=== PATIENT | male | born 1980 | race Caucasian/White ===

== ENCOUNTER 2018-01-27 08:11 | Emergency (ER) | payer OTHER ==
[~2018-01-27] VITALS: Ht 182.9 cm; Wt 93.0 kg
--- OUTSIDE RECORDS SUMMARY | ~2018-01-27 | XMS | Clinical Summary ---
Demographics + + + | Address | [address] | | | [place] [address] | + + + | Home Phone | | + + + | Preferred Language | Unknown | + + + | Marital Status | Unknown | + + + | Christianity Affiliation | Unknown | + + + | Race | Unknown | + + + | Ethnic Group | Unknown | + + + Author + + + | Author | NON REVENUE LOCATIONS | + + + | Organization | NON REVENUE LOCATIONS | + + + | Address | Unknown | + + + | Phone | Unavailable | + + + Care Team Providers + +------+ + | Care Low Pressure Kettle Operator Name | Role | Phone | + +------+ + PP | Unavailable | + +------+ + Source Comments MÓNICA is fully live on both [facility] Ambulatory and [facility] InPatient.[facility] Allergies Not on File Current Medications Not on file Active Problems Not on file Social History + +-------+ +--------+------+ | Tobacco Use | Types | Packs/Day | Years | Date | | | | | Used | | + +-------+ +--------+------+ | Never Assessed | | | | | + +-------+ +--------+------+ + + + | Sex Assigned at | Date Recorded | | | | + + + | Not on file | | + + + Plan of Treatment + + + + + | Health Maintenance | Due Date | Last Done | Comments | + + + + + | INFLUENZA VACCINE | | | | | (FLU SHOT) | 8 | | | + + + + + Results Not on filefrom Last 3 Months"
--- OUTSIDE RECORDS SUMMARY | ~2018-01-27 | XMS | Clinical Summary ---
Demographics + + + | Address | [address] | | | [place] [address] | + + + | Home Phone | | + + + | Preferred Language | Unknown | + + + | Marital Status | Unknown | + + + | Church Affiliation | Unknown | + + + [...] Team Providers + +------+ + | Care Medical Records Director Name | Role | Phone | + +------+ + PP | Unavailable | + +------+ + Source Comments MÓNICA is fully live on both [facility] Ambulatory and [facility] InPatient.[facility] Allergies Not on File Current Medications Not [...]
--- OUTSIDE RECORDS SUMMARY | ~2018-01-27 | XMS | Clinical Summary ---
Demographics + + + | Address | [address] [place] [address] | | | [place] [address] | + + + | Home Phone | | + + + | Preferred Language | Unknown | + + + | Marital Status | Single | + + + | Islam Affiliation | Unknown | + + + | Race | Unknown | + + + | Ethnic Group | Unknown | + + + Author + + + | Author | [facility] | + + + | Organization | [facility] | + + + | Address | Unknown | + + + | Phone | Unavailable | + + + Support +--------+ +---------+ + | Name | Relationship | Address | Phone | +--------+ +---------+ + | No,One | ECON | Unknown | | +--------+ +---------+ + Care Team Providers + +------+ + | Care Auto Bumper Straightener Name | Role | Phone | + +------+ + | Lane Contreras MD | PP | | + +------+ + Allergies + + + + + + | Active Allergy | Reactions | Severity | Noted | Comments | | | | | Date | | + + + + + + | Penicillins | Anaphylaxis | High | 02/05/20 | | | | | | 14 | | + + + + + + Current Medications + + +--------+---------+------+------+-------+ | Prescription | Sig. | Disp. | Refills | Star | End | Statu | | | | | | t | Date | s | | | | | | Date | | | + + +--------+---------+------+------+-------+ | | Take 12.5 mg by | | | | | Activ | | hydrochlorothiazide | mouth daily. | | | | | e | | (MICROZIDE) 12.5 MG | | | | | | | | capsule | | | | | | | + + +--------+---------+------+------+-------+ | lithium carbonate | Take 900 mg by mouth | | | | | Activ | | 300 MG capsule | nightly. | | | | | e | + + +--------+---------+------+------+-------+ | nitroGLYCERIN | Place 0.4 mg under | | | | | Activ | | (NITROSTAT) 0.4 MG | the tongue every 5 | | | | | e | | SL tablet | (five) minutes as | | | | | | | | needed for Chest | | | | | | | | pain. | | | | | | + + +--------+---------+------+------+-------+ | clonazePAM | Take 1 mg by mouth 2 | | | | | Activ | | (KLONOPIN) 1 MG | (two) times daily | | | | | e | | tablet | as needed for | | | | | | | | Anxiety. | | | | | | + + +--------+---------+------+------+-------+ | phenytoin | Take 200 mg by mouth | | | | | Activ | | (DILANTIN) 100 MG ER | 2 (two) times | | | | | e | | capsule | daily. | | | | | | + + +--------+---------+------+------+-------+ | tamsulosin | Take 0.4 mg by mouth | | | | | Activ | | (FLOMAX) 0.4 MG | After dinner. | | | | | e | | capsule | Administer 30 | | | | | | | | minutes after the | | | | | | | | same meal each day. | | | | | | | | Capsules should be | | | | | | | | swallowed whole; do | | | | | | | | not crush, chew, or | | | | | | | | open | | | | | | + + +--------+---------+------+------+-------+ | atenolol | Take 25 mg by mouth | | | | | Activ | | (TENORMIN) 25 MG | daily. | | | | | e | | tablet | | | | | | | + + +--------+---------+------+------+-------+ | sertraline | Take 100 mg by mouth | | | | | Activ | | (ZOLOFT) 100 MG | daily. | | | | | e | | tablet | | | | | | | + + +--------+---------+------+------+-------+ | Paliperidone | Inject into the | | | | | Activ | | Palmitate 234 | muscle. Every 4 | | | | | e | | MG/1.5ML SUSP | weeks (to be done by | | | | | | | | staff) | | | | | | + + +--------+---------+------+------+-------+ | Albuterol Sulfate | Inhale into the | | | | | Activ | | (VENTOLIN HFA IN) | lungs. | | | | | e | + + +--------+---------+------+------+-------+ | omeprazole | Take 20 mg by mouth | | | | | Activ | | (PRILOSEC) 20 MG | every morning before | | | | | e | | capsule | breakfast. | | | | | | + + +--------+---------+------+------+-------+ | aspirin 81 MG | Take 81 mg by mouth | | | | | Activ | | tablet | daily. | | | | | e | + + +--------+---------+------+------+-------+ | mirtazapine | Take 30 mg by mouth | | | | | Activ | | (REMERON) 30 MG | nightly. | | | | | e | | tablet | | | | | | | + + +--------+---------+------+------+-------+ | phenytoin | Take 100 mg by mouth | | | | | Activ | | (DILANTIN) 100 | 2 (two) times | | | | | e | | MG/4ML suspension | daily. | | | | | | + + +--------+---------+------+------+-------+ | lamoTROgine | Take 25 mg by mouth | | | | | Activ | | (LAMICTAL) 25 MG | daily. | | | | | e | | tablet | | | | | | | + + +--------+---------+------+------+-------+ | topiramate | Take 25 mg bid X 1 | 120 | 3 | 11/1 | | Activ | | (TOPAMAX) 50 MG | wk then 50 mg bid X | tablet | | 02/21 | | e | | tabletIndications: | 1 wk then 75 mg bid | | | 14 | | | | Epilepsy (HCC) | X 1 wk then 100 mg | | | | | | | | bid | | | | | | + + +--------+---------+------+------+-------+ Active Problems + + + | Problem | Noted Date | + + + | Chest pain | 02/04/2014 | + + + Family History + + +------+ + | Medical History | Relation | Name | Comments | + + +------+ + | Heart disease | Maternal | | | | | Grandfath | | | | | er | | | + + +------+ + | Heart disease | Maternal | | | | | Grandmoth | | | | | er | | | + + +------+ + | Heart Disease | | | Per patient most of mothers family | + + +------+ + + +------+--------+ + | Relation | Name | Status | Comments | + +------+--------+ + | Maternal Grandfather | | | | + +------+--------+ + | Maternal Grandmother | | | | + +------+--------+ + Social History + +-------+ +--------+------+ | Tobacco Use | Types | Packs/Day | Years | Date | | | | | Used | | + +-------+ +--------+------+ | Former Smoker | | | | | + +-------+ +--------+------+ + + +---------+ + | Alcohol Use | Drinks/We | oz/Week | Comments | | | ek | | | + + +---------+ + | No | | | | + + +---------+ + + + + | Sex Assigned at | Date Recorded | | | | + + + | Not on file | | + + + Last Filed Vital Signs + + + + | Vital Sign | Reading | Time Taken | + + + + | Blood Pressure | 115/80 | 04/22/2014 11:06 AM PST | + + + + | Pulse | 66 | 04/22/2014 11:06 AM PST | + + + + | Temperature | - | - | + + + + | Respiratory Rate | 20 | 02/04/2014 1:40 PM PDT | + + + + | Oxygen Saturation | 100% | 02/04/2014 1:40 PM PDT | + + + + | Inhaled Oxygen | - | - | | Concentration | | | + + + + | Weight | 103.4 kg (228 lb) | 04/22/2014 11:06 AM PST | + + + + | Height | 182.9 cm (6') | 04/22/2014 11:06 AM PST | + + + + | Body Mass Index | 30.92 | 04/22/2014 11:06 AM PST | + + + + Plan of Treatment + + + + + | Health Maintenance | Due Date | Last Done | Comments | + + + + + | Vaccine: | | | | | Dtap/Tdap/Td (1 - | 9 | | | | Tdap) | | | | + + + + + | Vaccine: Influenza | | | | | (#1) | 8 | | | + + + + + Results Not on filefrom Last 3 Months Insurance + +--------+ +------+-------+---------+ | Payer | Benefi | Subscriber | Type | Phone | Address | | | t Plan | ID | | | | | | / | | | | | | | Group | | | | | + +--------+ +------+-------+---------+ | [employer] | [employer] | [id number] | | | | | | RECTIO | | | | | | | NAL | | | | | | | HEALTH | | | | | | | | | | | | | | PARTNE | | | | | | | RS | | | | | + +--------+ +------+-------+---------+ + +--------+ +--------+ + + | Guarantor Name | Accoun | Relation to | Date | Phone | Billing Address | | | t Type | Patient | of | | | | | | | | | | + +--------+ +--------+ + + | [place], [place] | Correc | Other | [birth year] | Home: | [address] | | | tional | | [phone] | [phone] | [place] | | | | | | [phone] | | | Facili | | | | | | | ty | | | | | + +--------+ +--------+ + +"
--- OUTSIDE RECORDS SUMMARY | ~2018-01-27 | XMS | Clinical Summary ---
Demographics + + + | Address | [address] [place] [address] | | | [place] [address] | + + + | Home Phone | | + + + | Preferred Language | Unknown | + + + | Marital Status | Single | + + + | Cheondoism Affiliation | Unknown | + + + | Race | Unknown | + + + | Ethnic Group | Unknown | + + + Author + + + | Author | [facility] | + + + | Organization | [facility] | + + + | Address | Unknown | + + + | Phone | Unavailable | + + + Support +--------+ +---------+ + | Name | Relationship | Address | Phone | +--------+ +---------+ + | No,One | ECON | Unknown | | +--------+ +---------+ + Care Team Providers + +------+ + | Care Coil Former Name | Role | Phone | + [...] +------+-------+---------+ | [employer] | [employer] | [id number] | | | | | | RECTIO [...] | + +--------+ +--------+ + + | [place], [place] | Correc | Other | [birth year] | Home: | [address] | | | tional | | 1900 | [phone] | [place] | | | | | | [phone] | | | Facili | | | | | | | ty | | | | | + +--------+ +--------+ + +"
[~2018-01-27 08:11] MED LIST: ASPIRIN EC81 MG PO; ATENOLOL25 MG PO; BUSPIRONE HCL15 MG PO; CLONAZEPAM1 MG PO; FLOMAX0.4 MG PO; HYDROCHLOROTH12.5 MG PO; HYDROXYZINE HCL50 MG PO; INVEGA SUS234 MG/1.5 IM; KLONOPIN1 MG PO; MIRTAZAPINE30 MG PO; NITROSTAT0.4 MG SL; OMEPRAZOLE20 MG PO; SERTRALINE HCL100 MG PO; SUCRALFATE1 GM PO; TOPIRAMATE100 MG PO; VENTOLIN HFA18 GM INH
[2018-01-27] MEDS ORDERED: TOPROL XL25 MG PO (08:39)
[2018-01-27] MEDS ORDERED: DULOXETINE HCL20 MG PO (08:40)
[2018-01-27] MEDS ORDERED: RANITIDINE HCL150 M1 PO (08:40)
[2018-01-27] MEDS ORDERED: ULTRAM50 MG PO (08:41)
[2018-01-27] MEDS ORDERED: ATORVASTATIN CA10 MG PO (08:41)
== END 2018-01-27 09:19 | disposition home or self-care (01) ==
LOC: ED 08:11
DX: S93.402A Sprain of unspecified ligament of left ankle, initial encounter (principal); I10 Essential (primary) hypertension; I25.2 Old myocardial infarction; F31.9 Bipolar disorder, unspecified; K21.9 Gastro-esophageal reflux disease without esophagitis; F20.9 Schizophrenia, unspecified; Z87.891 Personal history of nicotine dependence; Z88.0 Allergy status to penicillin; Z79.899 Other long term (current) drug therapy; Z79.82 Long term (current) use of aspirin; X58.XXXA Exposure to other specified factors, initial encounter
CPT/HCPCS: 73610; 93971; 99284

== ENCOUNTER 2019-07-15 23:02 | Observation (INO) | payer OTHER ==
[~2019-07-15] VITALS: Ht 182.9 cm; Wt 105.5 kg
[~2019-07-15 23:02] MED LIST changes: +ATORVASTATIN CA20 MG PO; +DULOXETINE HCL20 MG PO; +RANITIDINE HCL150 M1 PO; +TOPROL XL25 MG PO; +ULTRAM50 MG PO
[2019-07-15] MEDS ORDERED: PEPCID40 MG PO (23:25)
[2019-07-15] MEDS ORDERED: AMITRIPTYLINE H50 MG PO (23:25)
[2019-07-15] MEDS ORDERED: KEPPRA250 MG PO (23:26)
[2019-07-15] MEDS ORDERED: PAROXETINE HCL40 MG PO (23:27)
[2019-07-15] MEDS ORDERED: ESCITALOPRAM OX10 MG PO (23:27)
[2019-07-15] MEDS ORDERED: VOLTAREN100 GM TOP (23:27)
[2019-07-15] MEDS ORDERED: VISTARIL50 MG PO (23:28)
--- NOTE | 2019-07-16 01:57 | NUR ---
ASSISTED CRIMINAL JUSTICE SOCIAL WORKER LUIZ DID ADMISSION. V/S TAKEN AND CHARTED BY CRIMINAL JUSTICE SOCIAL WORKER.
--- NOTE | 2019-07-16 02:03 | EKG ---
[facility] [address] [facility] [place], [place] [address] Signed Sinus rhythm with 1st degree AV block Prolonged QT Abnormal ECG No previous ECGs available Confirmed by GLEN SAEZ MD ([id number]) on 07/16/2019 2:02:43 AM Electronically Signed By: GLEN SAEZ MD 07/16/19 0203 PATIENT NAME: KORY FOUNTAIN [place] Electrocardiogram DATE OF : 80 PHYSICIAN: GLEN SAEZ MD REPORT #: [id number] REPORT IS CONFIDENTIAL AND NOT TO BE RELEASED WITHOUT AUTHORIZATION
--- NOTE | 2019-07-16 02:55 | NUR ---
ASSESSMENT COMPLETE. RLE ELEVATED ON TWO PILLOWS. CMS INTACT. PULSES STRONG. SCATTERED BRUISING FROM 3 INCHES ABOVE THE KNEE TO THE FOOT ON THE RIGHT SIDE. PRN GIVEN FOR 8/[address] STACY RECEIVED REGARDING CONFLICT WITH IV ABX ORDERED DUE TO PT ALLERGY TO PENICILLIN. IV ABX ADMINISTERED PER ORDER. PT WITH NO S/SX OF ALLERGIC REACTION. PT ORIENTED TO NURSE CALL LIGHT. IVF INFUSING. GUARDS X 2 IN ROOM. CALL LIGHT IN REACH.
--- NOTE | 2019-07-16 04:27 | NUR ---
CALL LIGHT ANSWERED. PT C/O SHARP PAIN IN RIGHT LEG THAT RADIATES FROM HIS FOOT TO HIS GROIN AREA. COBAN AND GAUZE THAT WAS PLACED IN ED WAS REMOVED. LEG NO LONGER WEEPING, WILL LEAVE OPEN TO AIR. GAURDS IN ROOM REMOVED ZIP TIE ON RLE TO ALLEVIATE PRESSURE POINTS. LEG ELEVATED WITH PILLOWS, BED ELEVATED. PULSE IN RLE REMAINS STRONG, COLOR UNCHANGED, SENSATION INTACT, CAP REFILL <3 SEC. PRN GIVEN FOR PAIN.
--- NOTE | 2019-07-16 06:04 | NUR ---
PT C/O NAUSEA AND "FEELING ICKY ALL OVER". DR. STACY NOTIFIED, NEW ORDERS RECEIVED.
--- NOTE | 2019-07-16 06:59 | NUR ---
PRN GIVEN FOR 7/10 RLE PAIN. GUARDS IN ROOM REAPPLYING RESTRAINT TO RLE WITH A WASHCLOTH A BARRIER.
--- NOTE | 2019-07-16 07:20 | NUR ---
PT RESTING SUPINE IN BED WITH AFFECTED RLE ELEVATED ON PILLOWS. CMS INTACT. PT DENIES NEEDS OR CONCERNS. BRUISING NOTED TO R KNEE. BEDSIDE REPORT RECEIVED FROM MO ROTH. TWO OFFICERS AT BEDSIDE. CALL LIGHT IN REACH.
--- NOTE | 2019-07-16 08:25 | NUR ---
NOTIFIED DR STACY SURGICAL NURSE DEDE HASSAN OF FACT THAT PT HAD SMALL AMOUNT OF EMISIS WITH SOME PERSISTING NAUSEA AND THAT PT REQUESTS PEPCID BE ORDERED FOR INDIGESTION WELL.
--- NOTE | 2019-07-16 10:00 | NUR ---
Spoke with Jesús and correctional officers. Pt resides at [facility]. Uses a cane at times. [facility] on discharge. Per pt is is non weight bearing.
--- NOTE | 2019-07-16 10:47 | NUR ---
PT REPORTS NAUSEA AND HAD SMALL AMOUNT OF GREENISH STEVENS EMISIS. PT STATES "I THINK IT'S BECASUE OF THAT ANTIBIOTIC ITS CAUSING ME TO HAVE AN UPSET STOMACHE". PT DECLINES 1030 ABX. CURRENTLY NO MEDICATION AVAILABLE TO BE GIVEN FOR N/V. WILL NOTIFY MD OF PT'S S/SX'S AND OF REFUSAL TO TAKE ABX EVEN AFTER RISKS SUCH WORSENING INFECTION DISCUSSED WITH HIM. VSS.
--- NOTE | 2019-07-16 13:45 | NUR ---
PT RESTING IN SEMIFOWLERS POSITION WITH RLE ELVATED ON PILLOWS. PT REQEUSTED ADN RECEIVED PRN PO ANALGESIC FOR ELEVATED PAIN LEVEL TO RLE. ASSESSMENT COMPLETED. FRESH ICE WATER AND CALL LIGHT IN REACH. NO FURTHER NEEDS OR CONCERNS VOICED. TWO OFFICERS REMAIN AT BEDSIDE.
[2019-07-16] MEDS ORDERED: BUSPIRONE HCL15 MG PO (14:29)
[2019-07-16] MEDS ORDERED: PEXEVA40 MG PO (14:34)
[2019-07-16] MEDS ORDERED: VISTARIL50 MG PO (14:38)
--- NOTE | 2019-07-16 14:48 | NUR ---
Med rec completed
--- NOTE | 2019-07-16 16:05 | NUR ---
PT RESTING IN BED WITH RLE ELEVATED ON PILLOWS. CALL LIGHT AND H2O IN REACH. NO NEEDS OR CONCERNS VOICED. TWO [employer] OFFICERS REMAIN AT BEDSIDE.
--- NOTE | 2019-07-16 18:21 | NUR ---
pt resting supien in bed, alert and oriented. Pt reports pain of 6/10 to rle. Pt requested and received prn po opiod. Wamr pack provided for pt comfort and warm blanket also provided per request. call light and h2o in reach. cms intact to rle and rle remains elevated on pillows. Two officers remain at bedside.
--- NOTE | 2019-07-16 19:25 | NUR ---
SHIFT REPORT RECIEVED FROM PEYMAN HASSAN. PT LAYING IN BED, RLE ELEVATED WITH WARM PACK, CMS INTACT. PAIN 5/10, PT DENIES NEED FOR INTERVENTION. 2 COs AT BEDSIDE. PT IN SHACKLES AT FEET AND WRISTS. NO NEEDS AT THIS TIME. CALL LIGHT IN REACH.
--- NOTE | 2019-07-16 21:14 | NUR ---
VITALS AND I&OS DONE AND CHARTED. BEDSIDE TABLE AND CALL LIGHT IN REACH. FRESH ICE WATER GIVEN.
--- NOTE | 2019-07-16 21:30 | NUR ---
ASSESSMENT COMPLETED. PAIN 5/10 IN RLE. PT STATES NO CHANGES IN DISCOLORATION. GENERALIZED EDEMA IN RLE. CMS INTACT. WARM PACK PROVIDED. NO OTHER NEEDS AT THIS TIME. 2 COs IN ROOM. CALL LIGHT IN REACH.
--- NOTE | 2019-07-16 22:48 | NUR ---
PT STATES RLE PAIN 9/10, "SHARP, STABBING, BURNING." PRN PAIN MED PROVIDED. HEAT PACK PROVIDED. NO OTHER NEEDS. 2 COs IN ROOM. CALL LIGHT IN REACH.
--- NOTE | 2019-07-17 01:00 | NUR ---
PT RESTING IN BED, WATCHING TV. ICE WATER PROVIDED. URINAL EMPTIED. NO OTHER NEEDS, CALL LIGHT IN REACH.
--- NOTE | 2019-07-17 02:43 | NUR ---
SCHEDULED MED PROVIDED. ASSESSMENT COMPLETED. NO PAIN AT THIS TIME, CMS INTACT IN RLE. NO CHANGES TO DISCOLORATION, GENERALIZED EDEMA. NO OTHER NEEDS, CALL LIGHT IN REACH.
--- NOTE | 2019-07-17 03:22 | NUR ---
PT CALLS TO SAY HE HAS NAUSEA. PRN NAUSEA MED PROVIDED.NO OTHER NEEDS AT THIS TIME. CALL LIGHT IN REACH. 2 COs IN THE ROOM.
--- NOTE | 2019-07-17 04:44 | NUR ---
PT RESTING IN BED, EYES CLOSED. RR 16, EVEN, UNLABORED. CALL LIGHT IN REACH. 2 COs IN ROOM.
--- NOTE | 2019-07-17 05:11 | NUR ---
PT RLE PAIN 02/11. PRN PAIN MED PROVIDED. VS AND I&O COMPLETED. ICE WATER PROVIDED. NO OTHER NEEDS, CALL LIGHT IN REACH.
--- NOTE | 2019-07-17 07:15 | NUR ---
PT RESTING IN SEMIFOWLERS POSITION WATCHING TV CALL LIGHT AND H2O IN REACH. NO NEEDS OR CONCERNS VOICED AND PT APPEARS TO BE IN NO ACUTE DISTRESS. TWO OFFICERS AT BEDSIDE. REPORT RECEIVED FROM MO FORDE.
[2019-07-17] MEDS ORDERED: OXYCODONE HCL5 MG PO (07:57)
--- NOTE | 2019-07-17 09:00 | NUR ---
PT RESTING IN BED WITH RLE ELEVATED ON PILLOWS. PT ALERT AND ORIENTED CALL LIGHT AND H2O IN REACH. PT ASSISTED UP TO BATHROOM AND BACK TO BED WITH RLE ELEVATED. PT TOLERATED 100% OF BREAKFAST. NO FURTHER NEEDS. TWO OFFICERS REMAIN AT BEDSIDE.
--- NOTE | 2019-07-17 09:26 | NUR ---
WASHED PATIENT HAIR WITH SHAMPOO CAP. PATIENT IS WORKING WITH PHYSICAL THERAPY. CHANGED BED LINENS.
--- NOTE | 2019-07-17 09:41 | NUR ---
Leda JOHNSON, AMBULATED PATIENT 150 FEET WITH PATIENT USING CANE. PAPER PROGRESS NOTE FROM PKianaTKiana PLACED IN CHART.
--- NOTE | 2019-07-17 09:45 | NUR ---
PT REPORTS PAIN OF 7 TO 8/10 TO RLE. PT REQUESTED AND RECEIVED PO OXYCODONE. CALL LIGHT AND H2O IN REACH. TWO OFFICERS REMAIN AT BEDSIDE WITH PATIENT.
== END 2019-07-17 10:30 | disposition home or self-care (01) ==
LOC: ED 23:02 → MS 23:04
PROVIDERS: ADMIT Specialist
DX: S80.11XA Contusion of right lower leg, initial encounter (principal); M79.604 Pain in right leg; M79.89 Other specified soft tissue disorders; R29.898 Other symptoms and signs involving the musculoskeletal system; I25.10 Atherosclerotic heart disease of native coronary artery without angina pectoris; I10 Essential (primary) hypertension; Z88.0 Allergy status to penicillin; Z88.1 Allergy status to other antibiotic agents; Z79.899 Other long term (current) drug therapy; Z79.82 Long term (current) use of aspirin; Z87.891 Personal history of nicotine dependence
CPT/HCPCS: 36415; 73552; 73590; 73610; 80053; 81001; 82550; 83605; 83874; 85025; 85610; 85730; 93005; 93010; 93971; 96361; 96374; 96375; 96376; 97161; 99285-25; G0378; J0690; J1170; J1885; J2405; J7030; J7042

== ENCOUNTER 2019-08-11 13:51 | Emergency (ER) | payer OTHER ==
[~2019-08-11] VITALS: Ht 182.9 cm; Wt 105.5 kg
[~2019-08-11 13:51] MED LIST changes: +AMITRIPTYLINE H50 MG PO; +ESCITALOPRAM OX10 MG PO; +KEPPRA250 MG PO; +OXYCODONE HCL5 MG PO; +PAROXETINE HCL40 MG PO; +PEPCID40 MG PO; +PEXEVA40 MG PO; +VISTARIL50 MG PO; +VOLTAREN100 GM TOP
--- OUTSIDE RECORDS SUMMARY | 2019-08-11 13:54 | XMS ---
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 Rich has no Care Guidelines for this patient. Zay VISIT COUNT (12 MO.) 2 CINDY Llamas TOTAL 2 NOTE: Visits indicate total known visits. 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
[2019-08-11] MEDS ORDERED: CEPHALEXIN500 MG PO (20:27)
[2019-08-11] MEDS ORDERED: BACTRIM DS TAB1 EACH PO (20:27)
== END 2019-08-11 20:58 | disposition home or self-care (01) ==
LOC: ED 13:51
DX: L03.115 Cellulitis of right lower limb (principal); I25.2 Old myocardial infarction; K21.9 Gastro-esophageal reflux disease without esophagitis; F31.9 Bipolar disorder, unspecified; Z87.891 Personal history of nicotine dependence; Z88.0 Allergy status to penicillin; Z88.1 Allergy status to other antibiotic agents; Z79.899 Other long term (current) drug therapy; Z79.82 Long term (current) use of aspirin
CPT/HCPCS: 73590; 85025; 93971; 99284-25

== ENCOUNTER 2019-11-15 09:04 | Emergency (ER) | payer OTHER ==
[~2019-11-15] VITALS: Ht 182.9 cm; Wt 105.5 kg
[~2019-11-15 09:04] MED LIST changes: +BACTRIM DS TAB1 EACH PO; +CEPHALEXIN500 MG PO
[2019-11-15] MEDS ORDERED: LAMOTRIGINE100 MG PO (09:14)
[2019-11-15] MEDS ORDERED: ALPHA LIPOIC A200 M1 PO (09:15)
[2019-11-15] MEDS ORDERED: HYDROCHLOROTH12.5 MG PO (09:16)
--- NOTE | 2019-11-16 11:39 | EKG ---
[facility] [address] [place], [place] [address] Signed Normal sinus rhythm [address] segment elevation in Lead II and aVF. No reciporcal changes in the anterior leads. Likely related to repolarisation changes. Abnormal ECG When compared with ECG of 16-JUL-2019 01:35, QT has shortened Confirmed by GLEN SEAZ MD ([id number]) on 11/16/2019 11:39:11 AM Electronically Signed By: GLEN SAEZ MD 11/16/19 1139 PATIENT NAME: KORY FOUNTAIN [place] Electrocardiogram DATE OF : 80 PHYSICIAN: GLEN SAEZ MD REPORT #: [id number] REPORT IS CONFIDENTIAL AND NOT TO BE RELEASED WITHOUT AUTHORIZATION
--- NOTE | 2019-11-16 11:39 | EKG ---
[facility] [address] [place], [place] [address] Signed Baseline artefact Sinus rhythm with 1st degree AV block Otherwise normal ECG When compared with ECG of 15-NOV-2019 09:06, (Unconfirmed) No significant change was found Confirmed by GLEN SAEZ MD ([id number]) on 11/16/2019 11:39:35 AM Electronically Signed By: GLEN SAEZ MD 11/16/19 1139 PATIENT NAME: KORY FOUNTAIN [place] Electrocardiogram DATE OF : 80 PHYSICIAN: GLEN SAEZ MD REPORT #: [id number] REPORT IS CONFIDENTIAL AND NOT TO BE RELEASED WITHOUT AUTHORIZATION
== END 2019-11-15 10:02 | disposition short-term general hospital (02) ==
LOC: ED 09:04
DX: R07.9 Chest pain, unspecified (principal); R94.31 Abnormal electrocardiogram [ECG] [EKG]; I25.2 Old myocardial infarction; J45.909 Unspecified asthma, uncomplicated; K21.9 Gastro-esophageal reflux disease without esophagitis; Z87.891 Personal history of nicotine dependence; Z88.0 Allergy status to penicillin; Z88.1 Allergy status to other antibiotic agents; Z79.899 Other long term (current) drug therapy; Z79.82 Long term (current) use of aspirin
CPT/HCPCS: 71045; 80053; 83735; 84484; 85025; 85610; 85730; 93005; 93010; 96374; 96375; 99285-25; J1644

== ENCOUNTER 2020-08-30 07:51 | Emergency (ER) | payer OTHER ==
[~2020-08-30] VITALS: Ht 182.9 cm; Wt 102.1 kg
[~2020-08-30 07:51] MED LIST changes: +ALPHA LIPOIC A200 M1 PO; +LAMOTRIGINE100 MG PO
[2020-08-30] MEDS ORDERED: AMITRIPTYLINE H10 MG PO (08:54)
[2020-08-30] MEDS ORDERED: TRAZODONE HCL50 MG PO (08:56)
[2020-08-30] MEDS ORDERED: ZYRTEC10 MG PO (08:57)
[2020-08-30] MEDS ORDERED: FERROUS GLUCON324 M1 (08:58)
[2020-08-30] MEDS ORDERED: FERROUS GLUCON324 M2 PO (08:58)
[2020-08-30] MEDS ORDERED: IRBESARTAN75 MG PO (08:59)
[2020-08-30] MEDS ORDERED: NITROSTAT0.4 MG SL (09:00)
[2020-08-30] MEDS ORDERED: MELATONIN1 MG PO (09:00)
[2020-08-30] MEDS ORDERED: OMEPRAZOLE20 MG PO (09:01)
[2020-08-30] MEDS ORDERED: VITAMIN C250 MG PO (09:01)
[2020-08-30] MEDS ORDERED: LAMICTAL150 MG PO (09:03)
== END 2020-08-30 10:27 | disposition home or self-care (01) ==
LOC: ED 07:51
DX: R10.31 Right lower quadrant pain (principal); R10.11 Right upper quadrant pain; I25.2 Old myocardial infarction; J45.909 Unspecified asthma, uncomplicated; K21.9 Gastro-esophageal reflux disease without esophagitis; Z20.822 Contact with and (suspected) exposure to COVID-19; Z87.891 Personal history of nicotine dependence; Z88.0 Allergy status to penicillin; Z88.1 Allergy status to other antibiotic agents; Z79.899 Other long term (current) drug therapy; Z79.82 Long term (current) use of aspirin
CPT/HCPCS: 74177; 80053; 81001; 83690; 85025; 99284-25; C9803; J2405; Q9967; U0003

== ENCOUNTER 2021-01-09 21:59 | Emergency (ER) | payer OTHER ==
[~2021-01-09] VITALS: Ht 182.9 cm; Wt 102.1 kg
[~2021-01-09 21:59] MED LIST changes: +AMITRIPTYLINE H10 MG PO; +FERROUS GLUCON324 M1; +FERROUS GLUCON324 M2 PO; +IRBESARTAN75 MG PO; +LAMICTAL150 MG PO; +MELATONIN1 MG PO; +TRAZODONE HCL50 MG PO; +VITAMIN C250 MG PO; +ZYRTEC10 MG PO
[2021-01-09] MEDS ORDERED: PAXIL40 MG PO (22:08)
[2021-01-09] MEDS ORDERED: BRIMONIDINE 0.110 ML OP (22:09)
--- NOTE | 2021-01-11 18:42 | EKG ---
[facility] [address] [facility] [place], [place] [address] Signed Normal sinus rhythm Nonspecific intraventricular conduction delay Borderline ECG When compared with ECG of 15-NOV-2019 09:11, T wave amplitude has decreased in Anterior leads Confirmed by KENNETH RODRIGUEZ DO ([id number]) on 01/11/2021 6:42:05 PM Electronically Signed By: KENNETH RODRIGUEZ DO 01/11/21 1842 PATIENT NAME: KORY FOUNTAIN [place] Electrocardiogram DATE OF : 80 PHYSICIAN: KENNETH RODRIGUEZ DO REPORT #: [id number] REPORT IS CONFIDENTIAL AND NOT TO BE RELEASED WITHOUT AUTHORIZATION
== END 2021-01-09 23:51 | disposition home or self-care (01) ==
LOC: ED 21:59
DX: R07.2 Precordial pain (principal); I25.2 Old myocardial infarction; J45.909 Unspecified asthma, uncomplicated; K21.9 Gastro-esophageal reflux disease without esophagitis; Z87.891 Personal history of nicotine dependence; Z88.0 Allergy status to penicillin; Z88.1 Allergy status to other antibiotic agents; Z79.899 Other long term (current) drug therapy; Z79.82 Long term (current) use of aspirin
CPT/HCPCS: 71045; 80053; 83735; 84484; 85025; 93005; 93010; 96374; 99285-25; J1885

== ENCOUNTER 2021-10-02 23:18 | Emergency (ER) | payer OTHER ==
[~2021-10-02] VITALS: Ht 182.9 cm; Wt 90.7 kg
[~2021-10-02 23:18] MED LIST changes: +BRIMONIDINE 0.110 ML OP; +CHILDREN'S ASPI81 M1 PO; +CYMBALTA60 MG PO; +LAMOTRIGINE200 MG PO; +LOSARTAN POTAS100 MG PO; +MELATIN3 MG PO; +PAXIL40 MG PO
[2021-10-02] MEDS ORDERED: AMLODIPINE BESY10 MG (23:24)
[2021-10-02] MEDS ORDERED: HYDROXYZINE HCL50 MG (23:25)
[2021-10-02] MEDS ORDERED: NEURONTIN400 MG (23:25)
[2021-10-02] MEDS ORDERED: HYDROCHLOROTHIA25 MG (23:25)
[2021-10-02] MEDS ORDERED: KAPSPARGO SPRIN50 MG (23:26)
[2021-10-02] MEDS ORDERED: ARTHRITIS PAIN57 GM (23:26)
[2021-10-02] MEDS ORDERED: MELOXICAM7.5 MG (23:27)
[2021-10-02] MEDS ORDERED: ASPERCREME1 EACH (23:27)
[2021-10-02] MEDS ORDERED: REFRESH OPTIVE10 ML (23:28)
[2021-10-02] MEDS ORDERED: NITROSTAT0.4 MG (23:28)
[2021-10-02] MEDS ORDERED: OMEPRAZOLE20 MG (23:28)
[2021-10-02] MEDS ORDERED: VITAMIN D250 MCG (23:28)
[2021-10-03] MEDS ORDERED: CYCLOBENZAPRINE10 MG PO (00:40)
--- NOTE | 2021-10-03 08:31 | EKG ---
[facility] [address] [facility] [place], [place] [address] Signed Sinus tachycardia Otherwise normal ECG No previous ECGs available Confirmed by JOSE NEVES MD ([id number]) on 10/03/2021 8:30:53 AM Electronically Signed By: JOSE NEVES MD 10/03/21 0831 PATIENT NAME: KORY FOUNTAIN [place] Electrocardiogram DATE OF : 80 PHYSICIAN: JOSE NEVES MD REPORT #: [id number] REPORT IS CONFIDENTIAL AND NOT TO BE RELEASED WITHOUT AUTHORIZATION
== END 2021-10-03 01:13 | disposition home or self-care (01) ==
LOC: ED 23:18
DX: R07.89 Other chest pain (principal); I25.2 Old myocardial infarction; J45.909 Unspecified asthma, uncomplicated; K21.9 Gastro-esophageal reflux disease without esophagitis; Z87.891 Personal history of nicotine dependence; Z88.0 Allergy status to penicillin; Z88.1 Allergy status to other antibiotic agents; Z79.899 Other long term (current) drug therapy; Z79.82 Long term (current) use of aspirin
CPT/HCPCS: 36415; 71045; 80048; 80053; 83690; 84484; 85025; 85379; 85610; 93005; 93010; 96374; 99285-25; J2270

== ENCOUNTER 2022-02-17 01:37 | Emergency (ER) | payer OTHER ==
[~2022-02-17] VITALS: Ht 185.4 cm; Wt 102.1 kg
[~2022-02-17 01:37] MED LIST changes: +AMLODIPINE BESY10 MG; +ARTHRITIS PAIN57 GM; +ASPERCREME1 EACH; +CYCLOBENZAPRINE10 MG PO; +HYDROCHLOROTHIA25 MG; +HYDROXYZINE HCL50 MG; +KAPSPARGO SPRIN50 MG; +MELOXICAM7.5 MG; +NEURONTIN400 MG; +NITROSTAT0.4 MG; +OMEPRAZOLE20 MG; +REFRESH OPTIVE10 ML; +VITAMIN D250 MCG
[2022-02-17] MEDS ORDERED: METOPROLOL SUCC50 MG PO (02:32)
--- NOTE | 2022-02-18 17:35 | EKG ---
[facility] [address] [facility] [place], [place] [address] Signed Normal sinus rhythm Normal ECG No previous ECGs available Confirmed by GLEN SAEZ MD ([id number]) on 02/18/2022 5:35:48 PM Electronically Signed By: GLEN SAEZ MD 02/18/22 1735 PATIENT NAME: АЛЕКСАНДР,KORY OCEANA Electrocardiogram DATE OF : 80 PHYSICIAN: GLEN SAEZ MD REPORT #: [id number] REPORT IS CONFIDENTIAL AND NOT TO BE RELEASED WITHOUT AUTHORIZATION
== END 2022-02-17 03:20 | disposition home or self-care (01) ==
LOC: ED 01:37
DX: I10 Essential (primary) hypertension (principal); I25.2 Old myocardial infarction; K21.9 Gastro-esophageal reflux disease without esophagitis; J45.909 Unspecified asthma, uncomplicated; Z87.891 Personal history of nicotine dependence; Z88.0 Allergy status to penicillin; Z88.1 Allergy status to other antibiotic agents; Z79.899 Other long term (current) drug therapy; Z79.82 Long term (current) use of aspirin
CPT/HCPCS: 36415; 71045; 80053; 83735; 83880; 84484; 85025; 85379; 85730; 93005; 93010; 96374; 96375; 96376; 99285-25; J2270; J2405

== ENCOUNTER 2022-04-17 22:24 | Emergency (ER) | payer OTHER ==
[~2022-04-17] VITALS: Ht 185.4 cm; Wt 102.1 kg
[~2022-04-17 22:24] MED LIST changes: +METOPROLOL SUCC50 MG PO
[2022-04-17] MEDS ORDERED: LEXAPRO10 MG PO (23:10)
--- NOTE | 2022-04-18 17:51 | EKG ---
[facility] [address] [place], [place] [address] Signed Normal sinus rhythm Normal ECG When compared with ECG of 17-FEB-2022 01:36, No significant change was found Confirmed by GLEN SAEZ MD ([id number]) on 04/18/2022 5:51:18 PM Electronically Signed By: GLEN SAEZ MD 04/18/221750 PATIENT NAME: KORY FOUNTAIN [place] Electrocardiogram DATE OF : 80 PHYSICIAN: GLEN SAEZ MD REPORT #: [id number] REPORT IS CONFIDENTIAL AND NOT TO BE RELEASED WITHOUT AUTHORIZATION
== END 2022-04-18 01:49 | disposition home or self-care (01) ==
LOC: ED 22:24
DX: M79.662 Pain in left lower leg (principal); K21.9 Gastro-esophageal reflux disease without esophagitis; J45.909 Unspecified asthma, uncomplicated; Z87.891 Personal history of nicotine dependence; Z88.0 Allergy status to penicillin; Z88.1 Allergy status to other antibiotic agents; Z79.899 Other long term (current) drug therapy
CPT/HCPCS: 36415; 80053; 84484; 84550; 85025; 85379; 85610; 93005; 93010; 93971; 96374; 96375; 99284-25; J1885; J2405

== ENCOUNTER 2022-06-01 21:23 | Emergency (ER) | payer OTHER ==
[~2022-06-01] VITALS: Ht 185.4 cm; Wt 102.1 kg
[~2022-06-01 21:23] MED LIST changes: +LEXAPRO10 MG PO
--- NOTE | 2022-06-02 17:25 | EKG ---
[facility] [address] [facility] [place], [place] [address] Signed Sinus rhythm with 1st degree AV block Otherwise normal ECG When compared with ECG of 17-APR-2022 23:27, No significant change was found Confirmed by GLEN SAEZ MD ([id number]) on 06/02/2022 5:25:06 PM Electronically Signed By: GLEN SAEZ MD 06/02/22 1725 PATIENT NAME: KORY FOUNTAIN [place] Electrocardiogram DATE OF : 80 PHYSICIAN: GLEN SAEZ MD REPORT #: [id number] REPORT IS CONFIDENTIAL AND NOT TO BE RELEASED WITHOUT AUTHORIZATION
== END 2022-06-02 00:35 | disposition home or self-care (01) ==
LOC: ED 21:23
DX: R07.89 Other chest pain (principal); I25.2 Old myocardial infarction; J45.909 Unspecified asthma, uncomplicated; K21.9 Gastro-esophageal reflux disease without esophagitis; Z87.891 Personal history of nicotine dependence; Z88.0 Allergy status to penicillin; Z88.1 Allergy status to other antibiotic agents; Z79.899 Other long term (current) drug therapy; Z79.82 Long term (current) use of aspirin
CPT/HCPCS: 36415; 71045; 80053; 83735; 84484; 85025; 85379; 93005; 93010; 99285-25

== ENCOUNTER 2022-06-25 16:49 | Emergency (ER) | payer OTHER ==
[~2022-06-25] VITALS: Ht 185.4 cm; Wt 102.1 kg
--- OUTSIDE RECORDS SUMMARY | 2022-06-25 16:57 | XMS ---
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 08/12/2019-Current PHONE: Unknown Rich has no Care Guidelines for this patient. Zay VISIT COUNT (12 MO.) 5 [facility] [facility]. TOTAL 5 NOTE: Visits indicate total known visits. ED/UCC VISIT TRACKING (12 MO.) 06/25/2022 16:50 [facility] [place] TYPE: Emergency COMPLAINT: - CHEST PAIN 06/01/2022 21:23 [facility] [place] TYPE: Emergency COMPLAINT: - CHEST PAIN DIAGNOSES: - Allergy status to penicillin - Personal history of nicotine dependence - Gastro-esophageal reflux disease without esophagitis - Chest pain, unspecified - ferry terminal agent (current) use of aspirin - Other chest pain - Unspecified asthma, uncomplicated - Allergy status to other antibiotic agents - Other intermediate frame tender (current) drug therapy - Old myocardial infarction 04/17/2022 22:25 [facility] [place] TYPE: Emergency COMPLAINT: - LEFT LEG PAIN, NAUSEA, VOMITING DIAGNOSES: - Other specified soft tissue disorders - Personal history of nicotine dependence - Allergy status to penicillin - Pain in left lower leg - Other penitentiary (current) drug therapy - Gastro-esophageal reflux disease without esophagitis - Allergy status to other antibiotic agents - Unspecified asthma, uncomplicated 02/17/2022 01:37 [facility] [place] TYPE: Emergency COMPLAINT: - CHEST PAIN DIAGNOSES: - Allergy status to penicillin - Gastro-esophageal reflux disease without esophagitis - Unspecified asthma, uncomplicated - halfway (current) use of aspirin - Essential (primary) hypertension - Allergy status to other antibiotic agents - Chest pain, unspecified - Personal history of nicotine dependence - Other intermediate frame tender (current) drug therapy - Old myocardial infarction 10/02/2021 23:18 [facility] [place] TYPE: Emergency COMPLAINT: - CHEST PAIN DIAGNOSES: - Old myocardial infarction - Unspecified asthma, uncomplicated - Other chest pain - halfway (current) use of aspirin - Gastro-esophageal reflux disease without esophagitis - Allergy status to penicillin - Personal history of nicotine dependence - Chest pain, unspecified - Allergy status to other antibiotic agents - Other intermediate frame tender (current) drug therapy INPATIENT VISIT TRACKING (12 MO.) No inpatient visits to display in this time frame [email or web address]
[2022-06-25] MEDS ORDERED: OMEPRAZOLE20 MG PO (17:06)
[2022-06-25] MEDS ORDERED: CELEBREX100 MG PO (17:06)
[2022-06-25] MEDS ORDERED: EFFEXOR XR150 MG PO (17:07)
--- NOTE | 2022-06-25 20:46 | EKG ---
[facility] [address] [facility] [place] [address] Signed Normal sinus rhythm Normal ECG No previous ECGs available Confirmed by Alden Gonzáles MD () on 06/25/2022 8:46:05 PM Electronically Signed By: ALDEN GONZÁLES MD 06/25/222045 PATIENT NAME: АЛЕКСАНДР,KORY CLYDE Electrocardiogram DATE OF : 80 PHYSICIAN: ALDEN GONZÁLES MD REPORT #: [id number] REPORT IS CONFIDENTIAL AND NOT TO BE RELEASED WITHOUT AUTHORIZATION
== END 2022-06-25 19:07 | disposition home or self-care (01) ==
LOC: ED 16:49
DX: R07.89 Other chest pain (principal); D72.829 Elevated white blood cell count, unspecified; I25.2 Old myocardial infarction; J45.909 Unspecified asthma, uncomplicated; K21.9 Gastro-esophageal reflux disease without esophagitis; Z87.891 Personal history of nicotine dependence; Z95.5 Presence of coronary angioplasty implant and graft; Z88.0 Allergy status to penicillin; Z88.1 Allergy status to other antibiotic agents; Z79.899 Other long term (current) drug therapy
CPT/HCPCS: 36415; 71045; 80053; 83735; 84484; 85025; 93005; 93010; 99285-25

== ENCOUNTER 2023-02-08 18:19 | Emergency (ER) | payer OTHER ==
[~2023-02-08] VITALS: Ht 185.4 cm; Wt 106.6 kg
[~2023-02-08 18:19] MED LIST changes: +CELEBREX100 MG PO; +CHLORTHALIDONE25 MG PO; +EFFEXOR XR150 MG PO; +METOPROLOL SUC100 MG PO
[2023-02-08 18:48] LABS: BASOPHILS 0.9 % (0-2); EOSINOPHILS 3.3 % (0-6); HEMATOCRIT 40.6 % (35.0-50.0); HEMOGLOBIN 13.5 g/dL (12.0-18.0); LYMPHOCYTES 31.7 % (24-44); MCH 27.2 (27-36); MCHC 33.2 g/dl (30-36); MCV 81.9 fl (81-99); MONOCYTES 7.3 % (0-12); NEUTROPHILS 56.8 % (39-80); PLATELET COUNT 258 K/uL (140-440); RBC 4.96 M/ul (4.3-5.7); RDW 14.4 (10.5-15.0)
[2023-02-08 19:00] LABS: ALBUMIN 3.9 g/dL (3.4-5.0); ALBUMIN/GLOBULIN RATIO 1.08 (1.1-2.4); ALKALINE PHOSPHATASE 79 U/L (46-116); ALT (SGPT) 38 U/L (14-59); ANION GAP 12.7 (7-21); AST (SGOT) 18 U/L (15-37); BILIRUBIN, TOTAL 0.7 ng/dL (0.2-1.0); BUN/CREATININE RATIO 16.66 (6.0-28.6); CALCIUM 9.1 mg/dL (8.5-10.1); CARBON DIOXIDE 25 mmol/L (21-32); CHLORIDE 106 mmol/L (98-107); CREATININE, SERUM 1.02 mg/dL (0.70-1.30); GLOMERULAR FILTRATION RATE,EST 94 mL/min (>60); POTASSIUM 3.7 mmol/L (3.5-5.1); PROTEIN, TOTAL 7.5 g/dL (6.4-8.2); UREA NITROGEN 17 mg/dL (7-18)
[2023-02-08] MEDS ORDERED: CYCLOBENZAPRINE10 MG PO (20:17)
[2023-02-08 20:42] VITALS: BP 144/80
--- NOTE | 2023-02-10 17:08 | EKG ---
[facility] [address] [facility] [place], [place] [address] Signed Sinus rhythm with 1st degree AV block Otherwise normal ECG No previous ECGs available Confirmed by MAGGI LEACH MD ([id number]) on 02/10/2023 5:08:29 PM Electronically Signed By: MAGGI LEACH 02/10/23 1708 PATIENT NAME: KORY FOUNTAIN [place] Electrocardiogram DATE OF : 80 PHYSICIAN: MAGGI LEACH REPORT #: [id number] REPORT IS CONFIDENTIAL AND NOT TO BE RELEASED WITHOUT AUTHORIZATION
== END 2023-02-08 20:45 | disposition home or self-care (01) ==
LOC: ED 18:19
PROVIDERS: Emergency Medicine
DX: R07.89 Other chest pain (principal); I25.2 Old myocardial infarction; J45.909 Unspecified asthma, uncomplicated; K21.9 Gastro-esophageal reflux disease without esophagitis; Z87.891 Personal history of nicotine dependence; Z88.0 Allergy status to penicillin; Z88.1 Allergy status to other antibiotic agents; Z79.899 Other long term (current) drug therapy
CPT/HCPCS: 36415; 71045; 80053; 84484; 85025; 93005; 93010; 99285-25

== ENCOUNTER 2023-03-26 23:25 | Emergency (ER) | payer OTHER ==
[~2023-03-26] VITALS: Ht 185.4 cm; Wt 104.0 kg
[2023-03-26 23:42] LABS: BASOPHILS 1.2 % (0-2); EOSINOPHILS 2.8 % (0-6); HEMATOCRIT 43.7 % (35.0-50.0); HEMOGLOBIN 14.4 g/dL (12.0-18.0); MCH 26.6 (27-36); MCV 80.7 fl (81-99); MONOCYTES 8.6 % (0-12); NEUTROPHILS 50.4 % (39-80); PLATELET COUNT 291 K/uL (140-440); RBC 5.41 M/ul (4.3-5.7); RDW 14.7 (10.5-15.0)
[2023-03-27 00:08] LABS: ALBUMIN 4.4 g/dL (3.4-5.0); ALBUMIN/GLOBULIN RATIO 1.19 (1.1-2.4); ALKALINE PHOSPHATASE 84 U/L (46-116); ALT (SGPT) 42 U/L (14-59); ANION GAP 13.8 (7-21); AST (SGOT) 24 U/L (15-37); BILIRUBIN, TOTAL 0.6 ng/dL (0.2-1.0); BUN/CREATININE RATIO 22.54 (6.0-28.6); CALCIUM 9.3 mg/dL (8.5-10.1); CARBON DIOXIDE 24 mmol/L (21-32); CHLORIDE 105 mmol/L (98-107); CREATININE, SERUM 1.02 mg/dL (0.70-1.30); GLOMERULAR FILTRATION RATE,EST 94 mL/min (>60); POTASSIUM 3.8 mmol/L (3.5-5.1); PROTEIN, TOTAL 8.1 g/dL (6.4-8.2); UREA NITROGEN 23 mg/dL (7-18)
[2023-03-27] MEDS ORDERED: BACTRIM DS TAB1 EACH PO (01:59)
[2023-03-27 02:45] VITALS: BP 143/89
--- NOTE | 2023-03-27 06:16 | EKG ---
[facility] [address] [facility] [place], [place] [address] Signed Normal sinus rhythm Cannot rule out Anterior infarct , age undetermined Abnormal ECG When compared with ECG of 08-FEB-2023 18:17, No significant change was found Confirmed by IGNACIA GUEVARA MD ([id number]) on 03/27/2023 6:16:37 AM Electronically Signed By: IGNACIA GUEVARA 03/27/23 0616 PATIENT NAME: KORY FOUNTAIN [place] Electrocardiogram DATE OF : 80 PHYSICIAN: IGNACIA GUEVARA REPORT #: [id number] REPORT IS CONFIDENTIAL AND NOT TO BE RELEASED WITHOUT AUTHORIZATION
== END 2023-03-27 02:45 | disposition home or self-care (01) ==
LOC: ED 23:25
PROVIDERS: Internal Medicine
DX: S02.841A Fracture of lateral orbital wall, right side, initial encounter for closed fracture (principal); S02.31XA Fracture of orbital floor, right side, initial encounter for closed fracture; S02.69XA Fracture of mandible of other specified site, initial encounter for closed fracture; S01.81XA Laceration without foreign body of other part of head, initial encounter; S00.81XA Abrasion of other part of head, initial encounter; M79.642 Pain in left hand; W01.0XXA Fall on same level from slipping, tripping and stumbling without subsequent striking against object, initial encounter; R07.9 Chest pain, unspecified; I10 Essential (primary) hypertension; I25.2 Old myocardial infarction; J45.909 Unspecified asthma, uncomplicated; K21.9 Gastro-esophageal reflux disease without esophagitis; Z87.891 Personal history of nicotine dependence; Z95.5 Presence of coronary angioplasty implant and graft; Z88.0 Allergy status to penicillin; Z88.1 Allergy status to other antibiotic agents; Z79.899 Other long term (current) drug therapy; Z23 Encounter for immunization
CPT/HCPCS: 36415; 70450; 70486; 71045; 72125; 73130; 80053; 83880; 84484; 85025; 90471; 90714; 93005; 93010; 99284-25; A9270

== ENCOUNTER 2023-10-04 10:36 | Emergency (ER) | payer OTHER ==
[~2023-10-04] VITALS: Ht 185.4 cm; Wt 98.2 kg
--- OUTSIDE RECORDS SUMMARY | 2023-10-04 10:44 | XMS ---
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 08/12/2019-Current PHONE: Unknown Rich has no Care Guidelines for this patient. [facility] NOTE: Visits indicate total known visits. ED/UCC VISIT TRACKING (12 MO.) 10/04/2023 10:37 [facility] [place] TYPE: Emergency COMPLAINT: - WEAKNESS 09/06/2023 23:56 [facility] [place] TYPE: Emergency COMPLAINT: - CHEST PAIN DIAGNOSES: - Allergy status to other antibiotic agents - Allergy status to penicillin - Gastro-esophageal reflux disease without esophagitis - Old myocardial infarction - Other chest pain - Other halfway (current) drug therapy - Personal history of nicotine dependence - Schizoaffective disorder, unspecified - Unspecified asthma, uncomplicated 03/26/2023 23:26 [facility] [place] TYPE: Emergency COMPLAINT: - CHEST TIGHTNESS DIAGNOSES: - Abrasion of other part of head, initial encounter - Allergy status to other antibiotic agents - Allergy status to penicillin - Chest pain, unspecified - Encounter for immunization - Essential (primary) hypertension - Fall on same level from slipping, tripping and stumbling without subsequent striking against object, initial encounter - Fracture of lateral orbital wall, right side, initial encounter for closed fracture - Fracture of mandible of other specified site, initial encounter for closed fracture - Fracture of orbital floor, right side, initial encounter for closed fracture - Gastro-esophageal reflux disease without esophagitis - Headache, unspecified - Laceration without foreign body of other part of head, initial encounter - Old myocardial infarction - Other local intermodal truck driver (current) drug therapy - Pain in left hand - Personal history of nicotine dependence - Presence of coronary angioplasty implant and graft - Unspecified asthma, uncomplicated 02/08/2023 18:[address] [facility] [place] TYPE: Emergency COMPLAINT: - CHEST PAIN DIAGNOSES: - Allergy status to other antibiotic agents - Allergy status to penicillin - Chest pain, unspecified - Gastro-esophageal reflux disease without esophagitis - Old myocardial infarction - Other chest pain - Other halfway (current) drug therapy - Personal history of nicotine dependence - Unspecified asthma, uncomplicated INPATIENT VISIT TRACKING (12 MO.) No inpatient visits to display in this time frame [email or web address]
[2023-10-04 10:56] LABS: BASOPHILS 1.2 % (0-2); EOSINOPHILS 2.4 % (0-6); HEMATOCRIT 43.6 % (35.0-50.0); HEMOGLOBIN 14.3 g/dL (12.0-18.0); LYMPHOCYTES 27.7 % (24-44); MCH 27.1 (27-36); MCHC 32.9 g/dl (30-36); MCV 82.3 fl (81-99); MONOCYTES 9.1 % (0-12); NEUTROPHILS 59.6 % (39-80); PLATELET COUNT 267 K/uL (140-440); RDW 13.9 (10.5-15.0)
[2023-10-04 11:08] LABS: ALBUMIN/GLOBULIN RATIO 1.05 (1.1-2.4); ANION GAP 14.3 (7-21); BILIRUBIN, TOTAL 1.2 ng/dL (0.2-1.0); BUN/CREATININE RATIO 22.22 (6.0-28.6); CREATININE, SERUM 0.99 mg/dL (0.70-1.30); POTASSIUM 4.3 mmol/L (3.5-5.1); PROTEIN, TOTAL 7.8 g/dL (6.4-8.2)
[2023-10-04] MEDS ORDERED: KETOROLAC TROMETHAMINE 15 MG/ML VIAL IV ONE (11:45)
[2023-10-04 12:05] VITALS: BP 148/98
--- NOTE | 2023-10-08 07:18 | EKG ---
[facility] [address] [facility] [place], [place] [address] Signed Normal sinus rhythm Normal ECG No previous ECGs available Confirmed by Javier Wahl MD ([id number]) on 10/08/2023 7:18:44 AM Electronically Signed By: JAVIER WAHL 10/08/23 0718 PATIENT NAME: KORY FOUNTAIN [place] Electrocardiogram DATE OF : 80 PHYSICIAN: JAVIER WAHL REPORT #: [id number] REPORT IS CONFIDENTIAL AND NOT TO BE RELEASED WITHOUT AUTHORIZATION
== END 2023-10-04 12:05 | disposition home or self-care (01) ==
LOC: ED 10:36
PROVIDERS: Emergency Medicine
DX: R07.9 Chest pain, unspecified (principal); I25.2 Old myocardial infarction; Z88.0 Allergy status to penicillin; Z88.1 Allergy status to other antibiotic agents; Z79.899 Other long term (current) drug therapy
CPT/HCPCS: 36415; 71045; 80053; 83690; 84484; 85025; 85379; 93005; 93010; 96374; 99285-25; J1885

== ENCOUNTER 2024-01-03 12:35 | Emergency (ER) | payer OTHER ==
[~2024-01-03] VITALS: Ht 185.4 cm; Wt 98.0 kg
[2024-01-03] MEDS ORDERED: ADULT LOW DOSE81 MG PO (13:06)
[2024-01-03] MEDS ORDERED: AVAPRO150 MG PO (13:06)
[2024-01-03] MEDS ORDERED: LITHIUM CARBON450 MG PO (13:07)
[2024-01-03] MEDS ORDERED: BUSPIRONE HCL10 MG PO (13:07)
[2024-01-03] MEDS ORDERED: RISPERDAL2 MG PO (13:07)
[2024-01-03] MEDS ORDERED: LAMICTAL100 MG PO (13:08)
[2024-01-03] MEDS ORDERED: PEPCID20 MG PO (13:09)
[2024-01-03] MEDS ORDERED: TRILEPTAL300 MG PO (13:09)
[2024-01-03] MEDS ORDERED: CARDURA1 MG PO (13:09)
[2024-01-03 13:36] LABS: BASOPHILS 0.7 % (0-2); EOSINOPHILS 0.9 % (0-6); HEMATOCRIT 39.9 % (35.0-50.0); HEMOGLOBIN 13.5 g/dL (12.0-18.0); MCH 28.3 (27-36); MCHC 33.9 g/dl (30-36); MCV 83.6 fl (81-99); NEUTROPHILS 60.4 % (39-80); PLATELET COUNT 221 K/uL (140-440); RBC 4.77 M/ul (4.3-5.7); RDW 14.3 (10.5-15.0)
[2024-01-03 13:57] LABS: ALBUMIN/GLOBULIN RATIO 1.14 (1.1-2.4); ALKALINE PHOSPHATASE 71 U/L (46-116); ALT (SGPT) 42 U/L (14-59); ANION GAP 11.1 (7-21); AST (SGOT) 19 U/L (15-37); BILIRUBIN, TOTAL 0.6 ng/dL (0.2-1.0); BUN/CREATININE RATIO 25.53 (6.0-28.6); CALCIUM 9.2 mg/dL (8.5-10.1); CARBON DIOXIDE 27 mmol/L (21-32); CHLORIDE 103 mmol/L (98-107); CREATINE KINASE 449 U/L (39-308); CREATININE, SERUM 0.94 mg/dL (0.70-1.30); GLOMERULAR FILTRATION RATE,EST 103 mL/min (>60); MAGNESIUM 2.1 mg/dL (1.8-2.4); POTASSIUM 4.1 mmol/L (3.5-5.1); PROTEIN, TOTAL 7.5 g/dL (6.4-8.2); UREA NITROGEN 24 mg/dL (7-18)
[2024-01-03 15:00] VITALS: BP 141/86
--- NOTE | 2024-01-04 16:27 | EKG ---
[facility] [address] [facility] [place], [place] [address] Signed Normal sinus rhythm Minimal voltage criteria for LVH, may be normal variant ( R in aVL ) Borderline ECG When compared with ECG of 04-OCT-2023 10:37, T wave inversion now evident in Inferior leads Confirmed by MAGGI LEACH MD ([id number]) on 01/04/2024 4:27:28 PM Electronically Signed By: MAGGI LEACH 01/04/24 1627 PATIENT NAME: KORY FOUNTAIN [place] Electrocardiogram DATE OF : 80 PHYSICIAN: MAGGI LEACH REPORT #: [id number] REPORT IS CONFIDENTIAL AND NOT TO BE RELEASED WITHOUT AUTHORIZATION
== END 2024-01-03 15:00 | disposition home or self-care (01) ==
LOC: ED 12:35
PROVIDERS: Emergency Medicine
DX: R07.9 Chest pain, unspecified (principal); I25.2 Old myocardial infarction; J45.909 Unspecified asthma, uncomplicated; K21.9 Gastro-esophageal reflux disease without esophagitis; Z79.899 Other long term (current) drug therapy; Z79.51 Long term (current) use of inhaled steroids; Z87.891 Personal history of nicotine dependence; Z88.0 Allergy status to penicillin; Z88.1 Allergy status to other antibiotic agents
CPT/HCPCS: 36415; 71045; 80053; 82553; 83735; 84484; 85025; 93005; 93010; 99285-25

== ENCOUNTER 2024-07-12 01:37 | Emergency (ER) | payer OTHER ==
[~2024-07-12] VITALS: Ht 185.4 cm; Wt 99.8 kg
[~2024-07-12 01:37] MED LIST changes: +ADULT LOW DOSE81 MG PO; +AVAPRO150 MG PO; +BUSPIRONE HCL10 MG PO; +CARDURA1 MG PO; +LAMICTAL100 MG PO; +LITHIUM CARBON450 MG PO; +PEPCID20 MG PO; +RISPERDAL2 MG PO; +TRILEPTAL300 MG PO
[2024-07-12] MEDS ORDERED: MORPHINE SULFATE 4 MG/ML VIAL IV ONE (01:45)
[2024-07-12 01:46] LABS: BASOPHILS 0.9 % (0-2); HEMATOCRIT 40.7 % (35.0-50.0); HEMOGLOBIN 13.5 g/dL (12.0-18.0); LYMPHOCYTES 30.6 % (24-44); MCH 27.8 (27-36); MCHC 33.3 g/dl (30-36); MCV 83.4 fl (81-99); MONOCYTES 8.5 % (0-12); PLATELET COUNT 266 K/uL (140-440); RBC 4.87 M/ul (4.3-5.7)
[2024-07-12 01:56] LABS: INR 0.94 (0.80-1.30); PROTIME 12.5 Sec (11.2-14.2)
[2024-07-12 02:04] LABS: ALBUMIN/GLOBULIN RATIO 1.14 (1.1-2.4); BILIRUBIN, TOTAL 0.8 ng/dL (0.2-1.0); BUN/CREATININE RATIO 20.48 (6.0-28.6); CALCIUM 9.2 mg/dL (8.5-10.1); CREATININE, SERUM 0.83 mg/dL (0.70-1.30); MAGNESIUM 2.1 mg/dL (1.8-2.4); PROTEIN, TOTAL 7.5 g/dL (6.4-8.2)
[2024-07-12] MEDS ORDERED: ENALAPRILAT DIHYDRATE 1.25 MG/ML VIAL IV ONE (02:45)
[2024-07-12 03:37] VITALS: BP 121/82
--- NOTE | 2024-07-14 22:53 | EKG ---
[facility] [address] [facility] [place], [place] [address] Signed Normal sinus rhythm Normal ECG When compared with ECG of 03-JAN-2024 12:53, No significant change was found Confirmed by Alden Gonzáles MD () on 07/14/2024 10:53:20 PM Electronically Signed By: ALDEN GONZÁLES MD 07/14/24 2253 PATIENT NAME: KORY FOUNTAIN [place] Electrocardiogram DATE OF : 80 PHYSICIAN: ALDEN GONZÁLES MD REPORT #: [id number] REPORT IS CONFIDENTIAL AND NOT TO BE RELEASED WITHOUT AUTHORIZATION
== END 2024-07-12 03:39 | disposition home or self-care (01) ==
LOC: ED 01:37
PROVIDERS: Family Medicine
DX: R07.89 Other chest pain (principal); I25.2 Old myocardial infarction; J45.909 Unspecified asthma, uncomplicated; K21.9 Gastro-esophageal reflux disease without esophagitis; Z87.891 Personal history of nicotine dependence; Z88.0 Allergy status to penicillin; Z88.1 Allergy status to other antibiotic agents; Z79.82 Long term (current) use of aspirin; Z79.899 Other long term (current) drug therapy
CPT/HCPCS: 36415; 71045; 80053; 83735; 84484; 85025; 85379; 85610; 93005; 93010; 96374; 96375; 99285-25; J2270

== ENCOUNTER 2024-07-23 13:36 | Emergency (ER) | payer OTHER ==
[~2024-07-23] VITALS: Ht 185.4 cm; Wt 101.6 kg
--- OUTSIDE RECORDS SUMMARY | 2024-07-23 13:41 | XMS ---
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 - 2 Visits in 30 Days CARE PROVIDERS [facility] 08/12/2019-Current PHONE: Unknown Rich has no Care Guidelines for this patient. Zay [facility] (12 MO.) [facility] T[facility] NOTE: Visits indicate total known visits. ED/UCC VISIT TRACKING (12 MO.) 07/23/2024 13:36 [facility] [place] TYPE: Emergency COMPLAINT: - CHEST PAIN 07/12/2024 01:37 [facility] [place] TYPE: Emergency COMPLAINT: - CHEST PAIN DIAGNOSES: - Allergy status to other antibiotic agents - Allergy status to penicillin - Chest pain, unspecified - Gastro-esophageal reflux disease without esophagitis - fish hatchery assistant (current) use of aspirin - Old myocardial infarction - Other chest pain - Other candy puller (current) drug therapy - Personal history of nicotine dependence - Unspecified asthma, uncomplicated 01/03/2024 12:36 [facility] [place] TYPE: Emergency COMPLAINT: - ABNORMAL LAB RESULTS DIAGNOSES: - Allergy status to other antibiotic agents - Allergy status to penicillin - Chest pain, unspecified - Gastro-esophageal reflux disease without esophagitis - fish hatchery assistant (current) use of inhaled steroids - Old myocardial infarction - Other fci (current) drug therapy - Personal history of nicotine dependence - Unspecified asthma, uncomplicated 10/04/2023 10:37 [facility] [place] TYPE: Emergency COMPLAINT: - WEAKNESS DIAGNOSES: - Allergy status to other antibiotic agents - Allergy status to penicillin - Chest pain, unspecified - Old myocardial infarction - Other candy puller (current) drug therapy 09/06/2023 23:56 [facility] [place] TYPE: Emergency COMPLAINT: - CHEST PAIN DIAGNOSES: - Allergy status to other antibiotic agents - Allergy status to penicillin - Gastro-esophageal reflux disease without esophagitis - Old myocardial infarction - Other chest pain - Other fci (current) drug therapy - Personal history of nicotine dependence - Schizoaffective disorder, unspecified - Unspecified asthma, uncomplicated INPATIENT VISIT TRACKING (12 MO.) No inpatient visits to display in this time frame [id number]
[2024-07-23] MEDS ORDERED: ZOLOFT50 MG PO (13:46)
[2024-07-23] MEDS ORDERED: METOPROLOL SUCC25 MG PO (13:47)
[2024-07-23] MEDS ORDERED: KEPPRA250 MG PO (13:48)
[2024-07-23 14:01] LABS: BASOPHILS 0.9 % (0-2); EOSINOPHILS 2.1 % (0-6); HEMATOCRIT 40.3 % (35.0-50.0); HEMOGLOBIN 13.4 g/dL (12.0-18.0); LYMPHOCYTES 30.8 % (24-44); MCH 27.7 (27-36); MCHC 33.3 g/dl (30-36); MCV 83.1 fl (81-99); NEUTROPHILS 56.2 % (39-80); PLATELET COUNT 243 K/uL (140-440); RBC 4.85 M/ul (4.3-5.7); RDW 13.9 (10.5-15.0)
[2024-07-23 14:21] LABS: ALBUMIN 3.7 g/dL (3.4-5.0); ALBUMIN/GLOBULIN RATIO 1.09 (1.1-2.4); BILIRUBIN, TOTAL 0.8 mg/dL (0.2-1.0); BUN/CREATININE RATIO 31.76 (6.0-28.6); CALCIUM 9.4 mg/dL (8.5-10.1); CREATININE, SERUM 0.85 mg/dL (0.70-1.30); PROTEIN, TOTAL 7.1 g/dL (6.4-8.2)
[2024-07-23 16:59] VITALS: BP 144/89
--- NOTE | 2024-07-24 13:59 | EKG ---
[facility] [address] [facility] [place], [place] [address] Signed Normal sinus rhythm Normal ECG When compared with ECG of 12-JUL-2024 01:39, No significant change was found Confirmed by Usman Rivera MD ([id number]) on 07/24/2024 1:58:52 PM Electronically Signed By: USMAN RIVERA MD 07/24/24 1359 PATIENT NAME: KORY FOUNTAIN [place] Electrocardiogram DATE OF : 80 PHYSICIAN: USMAN RIVERA MD REPORT #: [id number] REPORT IS CONFIDENTIAL AND NOT TO BE RELEASED WITHOUT AUTHORIZATION
== END 2024-07-23 16:59 | disposition home or self-care (01) ==
LOC: ED 13:36
PROVIDERS: Emergency Medicine
DX: R07.89 Other chest pain (principal); I25.2 Old myocardial infarction; J45.909 Unspecified asthma, uncomplicated; K21.9 Gastro-esophageal reflux disease without esophagitis; Z87.891 Personal history of nicotine dependence; Z88.0 Allergy status to penicillin; Z88.1 Allergy status to other antibiotic agents; Z79.82 Long term (current) use of aspirin; Z79.899 Other long term (current) drug therapy
CPT/HCPCS: 36415; 71045; 80053; 83735; 84484; 85025; 93005; 93010; 99285-25

== ENCOUNTER 2024-08-17 00:31 | Emergency (ER) | payer OTHER ==
[~2024-08-17] VITALS: Ht 185.4 cm; Wt 99.8 kg
[~2024-08-17 00:31] MED LIST changes: +METOPROLOL SUCC25 MG PO; +ZOLOFT50 MG PO
--- OUTSIDE RECORDS SUMMARY | 2024-08-17 00:34 | XMS ---
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 Zay VISIT COUNT (12 MO.) 6 [facility] TOTAL 6 NOTE: Visits indicate total known visits. ED/UCC VISIT TRACKING (12 MO.) 08/17/2024 00:32 [facility] [place] TYPE: Emergency COMPLAINT: - CHEST PAIN 07/23/2024 13:36 [facility] [place] TYPE: Emergency COMPLAINT: - CHEST PAIN DIAGNOSES: - Allergy status to other antibiotic agents - Allergy status to penicillin - Gastro-esophageal reflux disease without esophagitis - intermediate card tender (current) use of aspirin - Old myocardial infarction - Other chest pain - Other terminal worker (current) drug therapy - Personal history of nicotine dependence - Unspecified asthma, uncomplicated 07/12/2024 01:37 [facility] [place] TYPE: Emergency COMPLAINT: - CHEST PAIN DIAGNOSES: - Allergy status to other antibiotic agents - Allergy status to penicillin - Chest pain, unspecified - Gastro-esophageal reflux disease without esophagitis - alf (current) use of aspirin - Old myocardial infarction - Other chest pain - Other terminal worker (current) drug therapy - Personal history of nicotine dependence - Unspecified asthma, uncomplicated 01/03/2024 12:36 [facility] [place] TYPE: Emergency COMPLAINT: - ABNORMAL LAB RESULTS DIAGNOSES: - Allergy status to other antibiotic agents - Allergy status to penicillin - Chest pain, unspecified - Gastro-esophageal reflux disease without esophagitis - intermediate card tender (current) use of inhaled steroids - Old myocardial infarction - Other terminal worker (current) drug therapy - Personal history of nicotine dependence - Unspecified asthma, uncomplicated 10/04/2023 10:37 [facility] [place] TYPE: Emergency COMPLAINT: - WEAKNESS DIAGNOSES: - Allergy status to other antibiotic agents - Allergy status to penicillin - Chest pain, unspecified - Old myocardial infarction - Other terminal worker (current) drug therapy 09/06/2023 23:56 [facility] [place] TYPE: Emergency COMPLAINT: - CHEST PAIN DIAGNOSES: - Allergy status to other antibiotic agents - Allergy status to penicillin - Gastro-esophageal reflux disease without esophagitis - Old myocardial infarction - Other chest pain - Other shelter (current) drug therapy - Personal history of nicotine dependence - Schizoaffective disorder, unspecified - Unspecified asthma, uncomplicated INPATIENT VISIT TRACKING (12 MO.) No inpatient visits to display in this time frame [email or web address]
[2024-08-17] MEDS ORDERED: ZESTRIL40 MG PO (00:41)
[2024-08-17] MEDS ORDERED: ENALAPRILAT DIHYDRATE 1.25 MG/ML VIAL IV ONE (00:45)
[2024-08-17 00:47] LABS: BASOPHILS 0.8 % (0-2); EOSINOPHILS 1.8 % (0-6); HEMATOCRIT 42.2 % (35.0-50.0); HEMOGLOBIN 14.2 g/dL (12.0-18.0); MCH 27.4 (27-36); MCHC 33.6 g/dl (30-36); MCV 81.6 fl (81-99); MONOCYTES 9.4 % (0-12); PLATELET COUNT 266 K/uL (140-440); RBC 5.17 M/ul (4.3-5.7); RDW 13.2 (10.5-15.0)
[2024-08-17 00:58] LABS: INR 0.92 (0.80-1.30); PROTIME 12.3 Sec (11.2-14.2)
[2024-08-17 01:08] LABS: ALBUMIN 4.2 g/dL (3.4-5.0); ALBUMIN/GLOBULIN RATIO 1.24 (1.1-2.4); ANION GAP 13.8 (7-21); BILIRUBIN, TOTAL 0.8 mg/dL (0.2-1.0); BUN/CREATININE RATIO 23.33 (6.0-28.6); CALCIUM 9.2 mg/dL (8.5-10.1); CREATININE, SERUM 0.9 mg/dL (0.70-1.30); POTASSIUM 3.8 mmol/L (3.5-5.1); PROTEIN, TOTAL 7.6 g/dL (6.4-8.2)
[2024-08-17] MEDS ORDERED: HYDROCHLOROTHIA25 MG PO (01:16)
[2024-08-17 01:56] VITALS: BP 143/99
--- NOTE | 2024-08-18 17:37 | EKG ---
[facility] [address] [facility] [place], [place] [address] Signed Normal sinus rhythm Normal ECG When compared with ECG of 23-JUL-2024 13:36, No significant change was found Confirmed by Arpan Juarez DO ([id number]) on 08/18/2024 5:37:19 PM Electronically Signed By: ARPAN JUAREZ DO 08/18/24 1737 PATIENT NAME: KOYR FOUNTAIN [place] Electrocardiogram DATE OF : 80 PHYSICIAN: ARPAN JUAREZ DO REPORT #: [id number] REPORT IS CONFIDENTIAL AND NOT TO BE RELEASED WITHOUT AUTHORIZATION
== END 2024-08-17 01:56 | disposition home or self-care (01) ==
LOC: ED 00:31
PROVIDERS: Family Medicine
DX: R07.89 Other chest pain (principal); I10 Essential (primary) hypertension; J45.909 Unspecified asthma, uncomplicated; K21.9 Gastro-esophageal reflux disease without esophagitis; I25.2 Old myocardial infarction; Z79.899 Other long term (current) drug therapy; Z88.0 Allergy status to penicillin; Z88.1 Allergy status to other antibiotic agents; Z87.891 Personal history of nicotine dependence
CPT/HCPCS: 36415; 71045; 80053; 83735; 83880; 84484; 85025; 85610; 93005; 93010; 96374; 99285-25